=== PATIENT | male | born 2000 | race African-American/Black ===

== ENCOUNTER 2020-10-07 14:35 | Emergency (ER) | payer OTHER ==
--- OUTSIDE RECORDS SUMMARY | 2020-10-07 14:40 | XMS REPORT | Continuity of Care Document ---
:2000 Author Organization [facility] t Address [address] [place] [address] Care Team Providers Name Role Phone Steve Primary Care Physician Unavailable Faraz Robert Attending Clinician Ramakrishna Correia MD Attending Clinician Jordyn Tyler Attending Clinician VISIT, [facility] Attending Clinician Unavailable MASOOD Admitting Clinician Unavailable Payers Payer Name Policy Type Policy Effective Date Expiration Date Sour ce Number [facility] [id number] 2018 [facility] 00:00:00 [facility] [id number] O Problems Condition Condition Condition Status Onset Resolution Last Treating Co mments Source Name Details Category Date Date Treatment Clinician Date DKA DKA Disease Active [place] (diabetic (diabetic 4-09 Meth jacquelyn ketoacidos ketoacidos 00:00: st es) es) 00 Gastroesop Problem Active 2020-06-28 M emoria hageal - 00:32:10 l reflux 00:00: Byron disease Gastroesop 00 (disorder) hageal reflux disease (disorder) Active 04/25/2012 Problem 06/28/2020 Data migrated from T-Quad 22 on 01/09/15. Medical Group Polyuria Problem Active 2019-03-30 Mem oria (finding) 8-10 21:19:00 l Polyuria 00:00: Jose De Jesus kirkland (finding) 00 Active 03/22/2012 Problem 03/30/2019 Data migrated from T-Quad 22 on 01/09/15. Medical Group Diabetes Problem Resolve 2020-06-28 Me moria mellitus d 00:32:10 l (disorder) Diabetes He rmann mellitus (disorder) Resolved Problem 06/28/2020 Medical Group Morbid Problem Active 2020-06-28 Memor ia obesity 00:32:10 l (disorder) Morbid Herm zaki obesity (disorder) Active Problem 06/28/2020 Medical Group Well Problem Active 2019-03-30 Memor ia adolescent 21:19:00 l (finding) Well [place] adolescent (finding) Active Problem 03/30/2019 Medical Group Diabetes Problem Active 2020-06-28 Mem oria mellitus 00:32:10 l type 2 Diabetes Jose De Jesus n (disorder) mellitus type 2 (disorder) Active Problem 06/28/2020 Medical Group Hypertensi Problem Active 2020-06-28 M emoria ve 00:32:10 l disorder, [place] systemic Hypertensi arterial ve (disorder) disorder, systemic arterial (disorder) Active Problem 06/28/2020 Medical Group Allergies, Adverse Reactions, Alerts Allergy Allergy Status Severity Reaction(s) Onset Inactive Treating Comm ents Source Name Type Date Date Clinician No Known No Known Active Memori a Medicati Medicati l on on [place] Allergie Allergie s s Social History Social Habit Start Date Stop Date Quantity Comments Source Sex Assigned At [facility] ethodist History [facility] Meth odist Alcohol Std Drinks History [facility] Meth odist Alcohol Binge Social History 2020-03-23 2020-03-23 [facility] ermann 14:19:16 14:19:16 Tobacco use and 2019-11-20 2019-11-20 Never used [facility] ethodist exposure 00:00:00 00:00:00 Alcohol intake 2019-11-20 2019-11-20 Lifetime [facility] thodist 00:00:00 00:00:00 non-drinker (finding) History [facility] 2019-11-20 2019-11-20 1 [place] Meth odist Alcohol Frequency 00:00:00 00:00:00 Smoking Status Start Date Stop Date Source Never smoker [place] Jihanis margarita Medications Ordered Filled Start Stop Current Ordering Indication Dosage Frequency Signature Comments Components Source Medication Medication Date Date Medication? Clinician (SIG) Name Name 3 ML 2019-08 Yes See Memoria Insulin 1-13 Instructio l Glargine 15:38: ns, INJECT Her krause 100 UNT/ML 00 20 UNITS Prefilled SUB-Q ONCE Syringe DAILY AT [Lantus] BEDTIME, # 45 mL, 2 Refill(s), Pharmacy: [facility], 170.18, cm, 06/25/20 9:22:00 PERPETUAL INVENTORY CLERK, Height, 172.443, kg, 06/25/20 9:22:00 PERPETUAL INVENTORY CLERK, Weight BD 2019-08 Yes 1 ea, Memoria Ultra-Fine 1-13 MISC, l Alma 15:38: Daily, use [place] Insulin Pen 00 with Elizabeth 32G lantus, # 4mm= 100 ea, 3 inch Refill(s), Pharmacy: [facility], 170.18, cm, 06/25/20 9:22:00 PERPETUAL INVENTORY CLERK, Height, 172.443, kg, 06/25/20 9:22:00 PERPETUAL INVENTORY CLERK, Weight metFORMIN 2019-08 Yes 1,000 mg = Me moria 500 mg oral 1-13 2 tab, PO, l tablet, 15:38: Daily, # Jose De Jesus n extended 00 180 tab, 1 release Refill(s), Pharmacy: [facility], 170.18, cm, 06/25/20 9:22:00 PERPETUAL INVENTORY CLERK, Height, 172.443, kg, 06/25/20 9:22:00 PERPETUAL INVENTORY CLERK, Weight lisinopril 2019-08 Yes 10 mg = 1 Me moria 10 mg oral 1-13 tab, PO, l tablet 15:38: Daily, # [place] 00 90 tab, 1 Refill(s), Pharmacy: [facility], 170.18, cm, 06/25/20 9:22:00 PERPETUAL INVENTORY CLERK, Height, 172.443, kg, 06/25/20 9:22:00 PERPETUAL INVENTORY CLERK, Weight lisinopril Yes 5 mg = 1 Mem oria 5 mg oral 8-11 tab, PO, l tablet 14:47: Daily, # [place] 00 90 tab, 0 Refill(s), Pharmacy: [facility], 167.64, cm, 03/23/20 9:15:00 CDT, Height, 170.625, kg, 03/23/20 9:15:00 CDT, Weight 3 ML 2019- Yes See Memoria Insulin 8-11 Instructio l Glargine 14:42: ns, INJECT Her krause 100 UNT/ML 00 50 UNITS Prefilled SUB-Q ONCE Syringe DAILY AT [Lantus] BEDTIME, # 45 mL, 2 Refill(s), Pharmacy: [facility], 167.64, cm, 03/23/20 9:15:00 CDT, Height, 170.625, kg, 03/23/20 9:15:00 CDT, Weight BD Yes 1 ea, Memoria Ultra-Fine 03-23 MISC, l Alma 14:42: Daily, use [place] Insulin Pen 00 with Elizabeth 32G lantus, # 4mm= 100 ea, 3 inch Refill(s), Pharmacy: [facility], 167.64, cm, 03/23/20 9:15:00 CDT, Height, 170.625, kg, 03/23/20 9:15:00 CDT, Weight metFORMIN Yes 1,000 mg = Me moria 500 mg oral 03-23 2 tab, PO, l tablet, 14:42: Daily, # Jose De Jesus n extended 00 180 tab, 1 release Refill(s), Pharmacy: [facility], 167.64, cm, 03/23/20 9:15:00 CDT, Height, 170.625, kg, 03/23/20 9:15:00 CDT, Weight aspirin 81 2020- No 81mg QD Chew 1 [place] mg chewable 4-16 04-16 tablet (81 M ethodi tablet 00:00: 23:59 mg total) st 00 :00 daily. lisinopriL 2020- No 5mg QD Take 1 [place] (PRINIVIL) 4-16 04-16 tablet (5 Met hodi 5 mg tablet 00:00: 23:59 mg total) st 00 :00 by mouth daily. metFORMIN 2020- No 500mg Q.5D Take 500 [place] (GLUCOPHAGE 4-15 04-15 mg by Method i ) 500 mg 13:54: 00:[address] tablet 03 :00 (two) times a day with meals. glipiZIDE Yes 5mg QD Take 1 [place] (GlucotroL) 4-15 tablet (5 Met hodi 5 MG tablet 00:00: mg total) s t 00 by mouth daily. insulin 2020-0 Yes 60U QD Inject 60 [place] GLARGINE 4-15 Units Methodi (LANTUS 00:00[facility] skin daily 100 unit/mL with injection dinner. (pen) blood-gluco 2020-0 Yes Test daily [place] se meter, 4-15 before all Meth jacquelyn drum-type 00:00: meals/snac st (Accu-Chek 00 ks and Compact once Plus Care) before kit bedtime. blood sugar 2020-0 Yes Test daily [place] diagnostic, 4-15 before all Me thodi drum 00:00: meals/snac st (Accu-Chek 00 ks and Compact once Test) strip before bedtime. lancing 2019-0 Yes Test daily [place] device with 4-15 before all Me thodi lancets 00:00: meals/snac st (Accu-Chek 00 ks and Multiclix once Lancet) kit before bedtime. alcohol 2019- Yes Test daily [place] swabs pads, 4-15 before all Me thodi medicated 00:00: meals/snac st 00 ks and once before bedtime. metFORMIN 2020- No 1000mg Q.5D Take 1 Dinora ston (GLUCOPHAGE 11-25-15 tablet Metho di ) 1,000 mg 00:00: 23:59 (1,000 mg s t tablet 00 :00 total) by mouth 2 (two) times a day with meals. Vital Signs Vital Name Observation Time Observation Value Comments Source Systolic (mm Hg) 2020-06-25 15:51:00 [facility] kati [place] Diastolic (mm Hg) 2020-06-25 15:51:00 [facility] Heart Rate 2020-06-25 15:51:00 [facility] Systolic (mm Hg) 2020-06-25 15:22:00 [facility] Diastolic (mm Hg) 2020-06-25 15:22:00 [facility] Heart Rate 2020-06-25 15:22:00 [facility] Respitory Rate 2020-06-25 15:22:00 [facility] iris [place] Height 2020-06-25 15:22:00 170.18 cm [facility] Weight 2020-06-25 15:22:00 [facility] BMI Calculated 2020-06-25 15:22:00 Memori al [place] Heart Rate 2020-03-23 14:15:00 [facility] [place] Height 2020-03-23 14:15:00 167.64 cm [facility] [place] Weight 2020-03-23 14:15:00 [facility] BMI Calculated 2020-03-23 14:15:00 Memori al [place] Systolic (mm Hg) 2020-03-23 14:15:00 Miky rial [place] Diastolic (mm Hg) 2020-03-23 14:15:00 Mem orial [place] Oxygen saturation in 2019-11-26 10:59:00 97 /min Oneal [facility] Arterial blood by Pulse oximetry Systolic blood 2019-11-26 10:48:33 134 mm[Hg] Diamondto n [facility] pressure Diastolic blood 2019-11-26 10:48:33 79 mm[Hg] Letitia on [facility] pressure Heart rate 2019-11-26 10:48:33 116 /min Oneal [facility] Body temperature 2019-11-26 10:48:33 37 Marybeth [place] Respiratory rate 2019-11-26 10:48:33 16 /min [place] Body weight 2019-11-26 09:00:00 164.837 kg Oneal [facility] BMI 2019-11-26 09:00:00 56.92 kg/m2 One[facility] Body height 2019-11-20 22:00:00 170.2 cm Oneal [facility] BMI Calculated 2018-02-08 19:08:00 Memalbin al [place] Weight 2018-02-08 19:08:00 [facility] [place] Height 2018-02-08 19:08:00 173.36 cm [facility] [place] Systolic (mm Hg) 2018-02-08 19:08:00 Miky rial [place] Diastolic (mm Hg) 2018-02-08 19:08:00 Mem orial [place] Heart Rate 2018-02-08 19:08:00 [facility] Procedure Date / Time Performing Clinician Source Performed POC GLUCOSE 2019-11-26 10:46:00 Jose Correia Meth odist Purushottam POC GLUCOSE 2019-11-26 07:00:00 Jose Correia Meth odist Purushottam POC GLUCOSE 2019-11-26 06:04:00 Jose Correia Meth odist Purushottam POC GLUCOSE 2019-11-25 20:47:00 Correia, [facility] Meth odist Purushottam POC GLUCOSE 2019-11-25 16:58:00 Correia, [facility] Meth odist Purushottam POC GLUCOSE 2019-11-25 11:38:00 Correia, [facility] Meth odist Purushottam POC GLUCOSE 2019-11-25 07:10:00 Correia, [facility] Meth odist Purushottam POC GLUCOSE 2019-11-25 05:51:00 Correia, [facility] Meth odist Purushottam POC GLUCOSE 2019-11-24 20:38:00 Correia, [facility] Meth odist Purushottam POC GLUCOSE 2019-11-24 15:25:00 Correia, [facility] Meth odist Purushottam POC GLUCOSE 2019-11-24 11:18:00 Correia, [facility] Meth odist Purushottam OCCULT BLOOD, STOOL 2019-11-24 10:00:00 Shivani Urrutia POC GLUCOSE 2019-11-24 07:30:00 Correia, [facility] Meth odist Purushottam BASIC METABOLIC PANEL 2019-11-24 05:10:00 Shivani Urrutia HC COMPLETE BLD COUNT 2019-11-24 05:10:00 Shivani Urrutia W/AUTO DIFF IONIZED CALCIUM 2019-11-24 05:10:00 Shivani Urrutia MAGNESIUM LEVEL 2019-11-24 05:10:00 Shivani Urrutia ESTIMATED GFR 2019-11-24 05:10:00 Shivani Urrutia GFR CALCULATION 2019-11-24 03:54:53 Shivani Urrutia POC GLUCOSE 2019-11-23 20:31:00 Correia, [facility] Meth odist Purushottam POC GLUCOSE 2019-11-23 17:26:00 Correia, [facility] Meth odist Purushottam POC GLUCOSE 2019-11-23 12:59:00 Correia, [facility] Meth odist Purushottam POC GLUCOSE 2019-11-23 11:10:[address] [facility] Meth odist Purushottam POC GLUCOSE 2019-11-23 08:56:00 Correia, [facility] Meth odist Purushottam POC GLUCOSE 2019-11-23 06:59:00 [facility] TROPONIN 2019-11-23 05:40:00 Christine Fatima BostonStephen Oneal Met hodist BASIC METABOLIC PANEL 2019-11-23 05:40:00 Shivani Urrutia [facility] CBC WITH PLATELET AND 2019-11-23 05:40:00 Shivani Urrutia [facility] DIFFERENTIAL IONIZED CALCIUM 2019-11-23 05:40:00 Shivani Urrutia [facility] MAGNESIUM LEVEL 2019-11-23 05:40:00 Shivani Urrutia [facility] PHOSPHORUS LEVEL 2019-11-23 05:40:00 Devon, Latoya Dong on [facility] ESTIMATED GFR 2019-11-23 05:40:00 Devon, Latoyaradha [place] [facility] MANUAL DIFFERENTIAL 2019-11-23 05:40:00 Devon, Latoya [place] [facility] POC GLUCOSE 2019-11-23 04:47:[address] [facility] Meth odist Purushottam GFR CALCULATION 2019-11-23 04:02:53 Devon, Latoya [place] [facility] POC GLUCOSE 2019-11-23 03:10:[address] [facility] Meth odist Purushottam POC GLUCOSE 2019-11-23 02:20:[address] [facility] Meth odist Purushottam POC GLUCOSE 2019-11-23 01:05:[address] [facility] Meth odist Purushottam POC GLUCOSE 2019-11-23 00:13:[address] [facility] Meth odist Purushottam POC GLUCOSE 2019-11-22 23:24:[address] [facility] Meth odist Purushottam POC GLUCOSE 2019-11-22 22:21:[address] [facility] Meth odist Purushottam POC GLUCOSE 2019-11-22 21:35:[address] [facility] Meth odist Purushottam POC GLUCOSE 2019-11-22 20:52:[address] [facility] Meth odist Purushottam POC GLUCOSE 2019-11-22 16:27:[address] [facility] Meth odist Purushottam POC GLUCOSE 2019-11-22 12:25:[address] [facility] Meth odist Purushottam POC GLUCOSE 2019-11-22 09:09:[address] [facility] Meth odist Purushottam POC GLUCOSE 2019-11-22 06:54:[address] [facility] Meth odist Purushottam POC GLUCOSE 2019-11-22 06:15:[address] [facility] Meth odist Purushottam POC GLUCOSE 2019-11-22 05:05:[address] [facility] Meth odist Purushottam POC GLUCOSE 2019-11-22 04:07:[address] [facility] Meth odist Purushottam POC GLUCOSE 2019-11-22 03:02:[address] [facility] Meth odist Purushottam LIPID PANEL 2019-11-22 03:00:00 Adrienne Colvin [facility] THYROID STIMULATING 2019-11-22 03:00:00 Adrienne Colvin [facility] HORMONE CBC WITH PLATELET AND 2019-11-22 03:00:00 Adrienne Colvin [facility] DIFFERENTIAL FERRITIN LEVEL 2019-11-22 03:00:00 Adrienne Colvin [facility] FOLATE LEVEL 2019-11-22 03:00:00 Adrienne Colvin [facility] TOTAL IRON BINDING 2019-11-22 03:00:00 Adrienne Colvin [facility] CAPACITY VITAMIN B12 LEVEL 2019-11-22 03:00:00 Adrienne Colvin on [facility] TROPONIN 2019-11-22 03:00:00 Christine Fatima hodrhea COMPREHENSIVE METABOLIC 2019-11-22 03:00:00 Praveen Duron [facility] PANEL IONIZED CALCIUM 2019-11-22 03:00:00 Praveen Duron Meth odist MAGNESIUM LEVEL 2019-11-22 03:00:00 Praveen Duron Meth odist PHOSPHORUS LEVEL 2019-11-22 03:00:00 Praveen Duron Met gordon PROTHROMBIN TIME WITH INR 2019-11-22 03:00:00 Praveen Duron ESTIMATED GFR 2019-11-22 03:00:00 Praveen Duron odist MANUAL DIFFERENTIAL 2019-11-22 03:00:00 Praveen Duron POC GLUCOSE 2019-11-22 01:54:00 Jose Correia [place] Meth odist Purushottam POC GLUCOSE 2019-11-22 01:05:[address] [facility] Meth odist Purushottam GFR CALCULATION 2019-11-22 00:58:31 ColvinAdrienne Noel Oneal [facility] POC GLUCOSE 2019-11-21 23:57:00 Correia, Jameervin [place] Meth odist Purushottam ECG 12-LEAD 2019-11-21 23:06:23 Praveen Duron Meth odist POC GLUCOSE 2019-11-21 22:55:00 CorreiaAlexis hernandezmargarita [place] Meth odist Purushottam POC GLUCOSE 2019-11-21 20:59:00 [facility] Pur[facility] BASIC METABOLIC PANEL 2019-11-21 20:28:00 Praveen Duron HC COMPLETE BLD COUNT 2019-11-21 20:28:00 Praveen Duron W/AUTO DIFF IONIZED CALCIUM 2019-11-21 20:28:00 Praveen Duron Meth odist MAGNESIUM LEVEL 2019-11-21 20:28:00 Praveen Duron Meth odist PHOSPHORUS LEVEL 2019-11-21 20:28:00 Praveen Duron Met hodist LACTIC ACID LEVEL 2019-11-21 20:28:00 Praveen Duron Me thodist ESTIMATED GFR 2019-11-21 20:28:00 Praveen Duron Meth odist GFR CALCULATION 2019-11-21 20:23:11 Praveen Duron Meth odist POC GLUCOSE 2019-11-21 20:00:00 Masood Jamerachelleanderson [place] Meth odist Purushottam TROPONIN 2019-11-21 19:01:00 Christine Fatima BostonStephen Oneal Met hodist POC GLUCOSE 2019-11-21 17:27:[address] [facility] Meth odist Purushottam TROPONIN 2019-11-21 17:25:00 Kelleysanty Christine Oneal Met hodist LIPID PANEL 2019-11-21 17:25:00 Margaux Fatimalexie Oneal Met hodist IA-2 ANTIBODY 2019-11-21 17:25:[address] [facility] Meth odist Purushottam INSULIN, RANDOM 2019-11-21 17:25:00 Correia, [facility] Meth odist Purushottam C-PEPTIDE 2019-11-21 17:25:[address] [facility] Meth odist Purushottam MISCELLANEOUS REFERRAL 2019-11-21 17:25:00 Correia [facility] Letitia on [facility] TEST Purushottam ECG 12-LEAD 2019-11-21 15:19:20 Kelleysanty Christine Oneal Met hodist POC GLUCOSE 2019-11-21 13:16:[address] [facility] Meth odist Purushottam POC GLUCOSE 2019-11-21 11:59:[address] [facility] Meth odist Purushottam POC GLUCOSE 2019-11-21 11:05:[address] [facility] Meth odist Purushottam POC GLUCOSE 2019-11-21 10:34:[address] [facility] Meth odist Purushottam URINE CULTURE 2019-11-21 09:14:[address] [facility] Meth odist Purushottam POC GLUCOSE 2019-11-21 08:47:[address] [facility] Meth odist Purushottam GFR CALCULATION 2019-11-21 08:15:01 Praveen Duron Meth odist POC GLUCOSE 2019-11-21 08:14:[address] [facility] Meth odist Purushottam BASIC METABOLIC PANEL 2019-11-21 08:12:00 Praveen Duron n [facility] ESTIMATED GFR 2019-11-21 08:12:00 Praveen Duron Meth odist POC GLUCOSE 2019-11-21 07:11:00 Correia, [facility] Meth odist Purushottam POC GLUCOSE 2019-11-21 06:28:00 [facility] COVID-19 QUALITATIVE PCR 2019-11-21 06:00:00 Praveen Duron POC GLUCOSE 2019-11-21 05:03:00 Jose Correia Meth odist Purushottam POC GLUCOSE 2019-11-21 04:01:00 Jose Correia [place] Meth odist Purushottam IONIZED CALCIUM 2019-11-21 03:30:00 Praveen Duron Meth odist MAGNESIUM LEVEL 2019-11-21 03:30:00 Praveen Duron Meth odist PHOSPHORUS LEVEL 2019-11-21 03:30:00 Praveen Duorn Met gordon BASIC METABOLIC PANEL 2019-11-21 03:30:00 Praveen Duron ESTIMATED GFR 2019-11-21 03:30:00 Praveen Duron Meth odist POC GLUCOSE 2019-11-21 03:01:00 Jose Correia [place] Meth odist Purushottam GFR CALCULATION 2019-11-21 02:45:25 Praveen Duron Meth odist XR CHEST 1 VW PORTABLE 2019-11-21 02:43:08 Praveen Duron on [facility] POC GLUCOSE 2019-11-21 02:36:00 Jose Correia Oneal Meth odist Purushottam URINALYSIS SCREEN AND 2019-11-21 02:22:00 Praveen Duron MICROSCOPY, WITH REFLEX TO CULTURE POC GLUCOSE 2019-11-21 00:59:00 Jose Correia Meth odist Purushottam POC GLUCOSE 2019-11-20 23:55:00 [facility] POC GLUCOSE 2019-11-20 23:18:00 Benito Correiaakmargarita [place] Meth odist Purushottam BLOOD CULTURE, AEROBIC & 2019-11-20 22:50:00 Praveen Duron ANAEROBIC VENOUS BLOOD GAS 2019-11-20 22:50:00 Praveen Duron BLOOD CULTURE, AEROBIC & 2019-11-20 22:40:00 Praveen Duron ANAEROBIC COMPREHENSIVE METABOLIC 2019-11-20 22:40:00 Praveen Duron [facility] PANEL HC COMPLETE BLD COUNT 2019-11-20 22:40:00 Praveen Duron W/AUTO DIFF HEMOGLOBIN A1C 2019-11-20 22:40:00 Praveen Duron Meth odist IONIZED CALCIUM 2019-11-20 22:40:00 Praveen Duron Meth odist MAGNESIUM LEVEL 2019-11-20 22:40:00 Praveen Duron Meth odist LACTIC ACID LEVEL 2019-11-20 22:40:00 Praveen Duron Me thodist ESTIMATED GFR 2019-11-20 22:40:00 Praveen Duron Meth odist PHOSPHORUS LEVEL 2019-11-20 22:40:00 Praveen Duron Met hodrhea BETA HYDROXYBUTYRATE 2019-11-20 22:40:00 Praveen Duron PROTHROMBIN TIME WITH INR 2019-11-20 22:40:00 Praveen Duronton [facility] POC GLUCOSE 2019-11-20 22:36:00 Jose Correia Meth odist Purushottam GFR CALCULATION 2019-11-20 22:12:12 Praveen Duron Meth odist POC GLUCOSE 2019-11-20 21:38:00 Jose Correia Meth odist Purushottam Plan of Care Planned Activity Planned Date Details Comments Source Future Scheduled 2020-03-13 INFLUENZA VACCINE [place] [facility] Test 00:00:00 [code = INFLUENZA VACCINE] Future Scheduled 2018 Hepatitis C screening [place] [facility] 00:00:00 (procedure) [code = 314119761] Future Scheduled 2016 COVID-19 VACCINE (1 of [place] [facility] 00:00:00 2) [code = COVID-19 VACCINE (1 of 2)] Future Scheduled 2010 DIABETES: RETINAL EYE [place] [facility] 00:00:00 EXAM [code = DIABETES: RETINAL EYE EXAM] Future Scheduled 2010 DIABETIC FOOT EXAM [place] [facility] 00:00:00 [code = DIABETIC FOOT EXAM] Future Scheduled 2010 URINE MICROALBUMIN [place] [facility] 00:00:00 [code = URINE MICROALBUMIN] Encounters Start End Encounter Admission Attending Care Care Encounter Source Date/Time Date/Time Type Type Clinicians Facility Department ID 2020-06-25 2020-06-25 Outpatient Jakob, [facility] [id number] 09:20:00 23:59:59 Manjula 13 Ruth 2020-03-30 2020-03-30 Outpatient Jakob, [facility] [id number] 15:20:00 23:59:59 Manjula 12 Ruth 2020-03-23 2020-03-23 Outpatient Jakob, [facility] [id number] 09:20:00 23:59:59 Manjula 11 Ruth 2019-12-16 2019-12-16 Outpatient Jakob, [facility] [id number] 09:20:00 09:20:00 Manjula 09 Ruth 2019-11-20 2019-11-26 Inpatient MASOOD, [facility] [id number] [place] [address] 00:00:00 00:00:00 J[address] 2019-03-28 2019-03-28 Outpatient Jayson, [facility] [id number] 09:30:00 09:30:00 Jacob 08 Rasool 2018-08-23 2018-08-23 Outpatient VISIT, [facility] [id number] 08:30:00 08:30:00 NURSE [facility] 07 PEDI 2018-08-09 2018-08-09 Outpatient VISIT, [facility] [id number] 08:15:00 08:15:00 NURSE [facility] 06 PEDI 2018-02-08 2018-02-08 Outpatient Jayson, [facility] [id number] 14:30:00 23:59:[address] Results Test Description Test Time Test Comments Results Result Comments Source HEMATOLOGY 2020-06-25 16.2 [facility] 15:57:00 HEMATOLOGY 2020-06-25 5.01 [facility] nn 15:57:00 HEMATOLOGY 2020-06-25 12.2 [facility] nn 15:57:00 HEMATOLOGY 2020-06-25 38.7 [facility] nn 15:57:00 HEMATOLOGY 2020-06-25 77.2 [facility] Elena nn 15:57:00 HEMATOLOGY 2020-06-25 15:57:00 Test Item Value Reference Range Interpretation Comme nts MCH (test code = MCH) 24.4 pg 27.0-33.0 Memorial [id number] 15:57:0031.5[facility]ann[facility]MATOLOGY 2020-06-25 15:57:0013.7[facility] [id number] 15:57:52650Qmxoyzpe [id number] 15:57:0010.3[facility] [id number] 15:57:3893865Eijbiqur CjjalfdPLNDHNFYWR3643-57-74 15:57:034781Lwmjtlqu [place] [id number] 15:57:074512Xwqdejvb PqbiqylEPDCVLPFQY0282-37-53 15:57:00 389[facility]orial MxdbaevKPBTJBSUWV0906-28-18 15:57:0097[facility] HermannHEMATOLOGY 2020-06-25 15:57:0069.9[facility]orial ZpbryruUAEZFQJMWU4615-66-62 15:57:0019.6[facility] PugxdhnGXRBAYPUMV6190-98-32 15:57:007.5[facility] LirtmdzYAEOTFKEMB5020-85-32 15:57:002.4[facility] GnafvedKSMDLFJQSL0531-02-08 15:57:000.6[facility] HermannCHEM WAYTJ0317-90-60 15:56:52170Lbizhsen HermannCHEM KMNPJ0807-96-58 15:56:0013 [facility]annCHEM RHRQJ4355-53-87 15:56:000.88[facility] HermannCHEM PANEL 2020-06-25 15:56:78720Gpgsatnn HermannCHEM VUBDX1751-56-17 15:56:35727Jlpswnat HermannCHEM CTVCK7889-37-52 15:56:79551Jwlxtovy HermannCHEM VRVLZ2209-00-11 15:56:004.6[facility] HermannCHEM KEVAE7617-33-20 15:56:19130Rokuhjuf HermannCHEM DJYWN9100-31-63 15:56:0028[facility] HermannCHEM DJKKJ5670-22-57 15:56:009.6 [facility]annCHEM KWELI3511-26-15 15:56:007.0[facility] HermannCHEM PANEL 2020-06-25 15:56:004.1[facility] HermannCHEM MWLSB2564-57-54 15:56:002.9[facility] HermannCHEM JWHCL5237-24-67 15:56:001.4[facility] HermannCHEM BWIVZ4810-64-81 15:56:000.5[facility] HermannCHEM RJVUQ2950-24-53 15:56:0071[facility] HermannCHEM GWIQT0797-88-76 15:56:0013[facility] HermannCHEM ZXRKC8419-15-39 15:56:0012 [facility] YdslpapJQQRAV6433-39-19 15:56:35893Fjunyapy GqzxgtsXENOKH3437-93-17 15:56:0044[facility] PtzhtscWWIHQC4651-20-24 15:56:0093[facility] HermannLIPIDS 2020-06-25 15:56:0082[facility] XsmrevvZKUKNK7172-61-26 15:56:003.3[facility] KcufmjtDDEQXJ6718-83-85 15:56:70270Spnbnhxw HermannSPECIAL OPBXWXRAP5933-37-49 15:56:006.1[facility] HermannIA-2 cgduyzzb8654-77-03 12:42:33 Test Item Value Reference Range Interpretation Comments IA-2 antibody (test see note Islet An tigen-2 (IA-2) code = 60224-4) Autoantibody , Serum OKUP test code 34297 99 IA-2, Autoantibody <5 .4 U/mL (Ref Interva l: 0.0-7.4) INTER PRETIVE INFORMATION: Is let Antigen-2 (IA-2 ) Autoantibody, S erumA value greater t stevens or equal to 7.5 Un its/mL is considered posi tive for IA-2 autoantibo dies. This assay is intend ed for the quantitative determination o f autoantibodies to Islet Antigen-2 (IA-2 ) in human serum. Results should be interpreted wit hin the context of clin ical symptoms. =========Test p erformed by:[facility] [place], [place] [address] [facility] MethodistMiscellaneous referral [id number] 10:24:08 Test Item Value Reference Interpretation Comments Range Misc test GAD65 serum name (test code = 2566) Misc test SEE NOTE Report Status: result FINAL (test code = 1730) =====GAD65 Ab A ssay, Serum ===== 0.01 nmol/L Reference Value: <= 0.02- - - - - - - - - - - - - - - - - - - - - - - - - - - - - -La boratory Notes:This test was developed and its performancechar acteristics determined by [facility] in a mannerconsisten t with CLIA requirements. T his test has not beencleared or approved by the U.S. Food a nd DrugAdministrat ion.+ ---+: PERFORMI SITE LEGEND :+ +: : [facility] :: : [address] [place] [address] :+ + COLBY (test CARDOZA Test ID: code = GD65S Glutamic COLBY) Acid Decarboxylase (GAD65) Antibody Assay, Serum [facility] gagekna5974-93-47 10:51:24 Test Item Value Reference Range Interpretation Comments POC glucose (test code 235 mg/dL 65-99 H Opera tee Name: Shantel = 27582-8) Jarrod ID: [id number] able: RN Notified Lab Interpretation Abnormal (test code = 05461-6) [facility] MethodistBlood culture, aerobic & bporqukki0843-07-85 01:03:08 Test Item Value Reference Range Interpretation Comments Blood culture No growth Specimen isolate (test after 5 days [facility] Anpro21 code = 600-7) of Source: BloodS pecimen incubation. Site: Antecubit al, right [facility] MethodistOccult blood, ydxzj1996-47-14 12:45:39 Test Item Value Reference Range Interpretation Comments Occult blood, Negative for Specimen stool (test occult blood. InformationSpe [employer] code = Source: StoolSp ecimen 2334-1) Site: Not other vega specified [facility] metabolic vknjv9825-36-83 06:10:37 Test Item Value Reference Range Interpretation Comments Sodium (test code = 136 See_Comment [Automa jesus message] 1857-2) The system Vetiary generated this result transmit jesus reference range : 135 - 148 mEq/L. Th e reference range was not used to interpret this result as normal/abnormal . Potassium (test code = 4.1 See_Comment [Aut omated message] 8336-3) The system Vetiary generated this result transmit jesus reference range : 3.5 - 5.0 mEq/L. Th e reference range was not used to interpret this result as normal/abnormal . Chloride (test code = 98 See_Comment [Auto mated message] 175-0) The system Vetiary generated this result transmit jesus reference range : 98 - 112 mEq/L. Th e reference range was not used to interpret this result as normal/abnormal . CO2 (test code = 28 See_Comment [Automated message] 2028-04) The system Vetiary generated this result transmit jesus reference range : 24 - 31 mEq/L. The reference range was not used to interpret this result as normal/abnormal . Anion gap (test code = 10@JASVIR See_Comment [Aut omated message] 03893-8) The system Vetiary generated this result transmit jesus reference range : 7 - 15 mEq/L. The reference range was not used to interpret this result as normal/abnormal . BUN (test code = 4 mg/dL 6-20 L 3094-0) Creatinine (test code = 0.61 mg/dL 0.7-1.2 L 2160-0) Glucose (test code = 174 mg/dL 65-99 H 2345-7) Calcium (test code = 8.7 mg/dL 8.3-10.2 76926-5) Lab Interpretation Abnormal (test code = 86461-7) Jm MethodistMagnesium maimy2748-42-89 06:10:37 Test Item Value Reference Range Interpretation Comments Magnesium (test code = 39344-5) 1.8 mg/dL 1.7-2.2 Oneal MethodistEstimated [id number] 06:10:37 Test Item Value Reference Range Interpretation Comments Estimated GFR (test >=90 mL/min/1.73 m2 [facility] Units code = 5488) InterpretationG 1 >=90 Normal or highG2 60-89 Mildly yvytdxwmvG5m 45-59 Mildly to mode rately giralljsuW0r 30-44 Moderately to severely decreasedG4 15-29 Severely decre asedG5 <15 Kidn ey failureThe eGFR was calculated pj hatch the Chronic Kidney Disease Epidemiology Co llaboration (CKD-EPI) equat ion. Interpretation is based on recommendations of the National Kidney Foundation-Kidn ey Disease Outcomes Qualit y Initiative (NKF-KDOQI) pub lished in 2013. Jm MethodistIonized mrxdpku3500-69-22 05:50:16 Test Item Value Reference Range Interpretation Comments pH (test code = 2753-2) 7.45 Ionized calcium (test code = 1.04 mmol/L 1.11-1.32 L 1994-) Lab Interpretation (test code = Abnormal 37542-9) Jm MethodistCBC with platelet and dfhdjywmfdsy4018-60-08 05:29:40 Test Item Value Reference Range Interpretation Comments WBC (test code = 9.5 See_Comment WBC was cor rected 16767-4) for NRBCs [Auto mated message] The sy stem which generated this result transmit jesus reference range : 4.5 - 11.0 k/uL. Th e reference range was not used to interpret this result as normal/abnormal . RBC (test code = 3.08 m/uL 4.4-6 L 76216-4) HGB (test code = 718-7) 8.0 g/dL 14-18 L HCT (test code = 4544-3) 25.6 % 41-51 L MCV (test code = 787-2) 83.1 fL 82-100 MCH (test code = 785-6) 26.0 pg 27-34 L MCHC (test code = 786-4) 31.3 g/dL 31-37 RDW - SD (test code = 38.9 fL 37-55 51493-2) MPV (test code = 10.3 fL 6.9-11 72732-0) Platelet count (test 296 K/uL 150-400 code = 08728-7) Nucleated RBC (test code 1.30 See_Comment [A utomated message] = 44062-3) The system Vetiary generated this result transmit jesus reference range : /100 WBC. The reference range was not used to interpret this result as normal/abnormal . Neutrophils (test code = 51.2 % 39-69 86652-5) Lymphocytes (test code = 30.4 % 25-45 04236-6) Monocytes (test code = 10.9 % 0-10 H 09850-1) Eosinophils (test code = 2.4 % 0-5 92559-0) Basophils (test code = 0.4 % 0-1 55192-5) Immature granulocytes 4.7 % 0-1 H (test code = 12372-1) Lab Interpretation (test Abnormal code = 12355-9) [facility] MethodistGFR znendvgihez8515-75-08 03:54:53 Test Item Value Reference Range Interpretation Comments GFR calculation (test See Below GFR no t valid on code = 1455) patients less t stevens 18 years of age . [facility] MethodistEC 12 zuak5615-78-33 22:27:42 Test Item Value Reference Range Interpretation Comments Ventricular rate (test 115 code = 253) Atrial rate (test code 115 = 255) NV interval (test code 142 = 266) QRSD interval (test 82 code = 260) QT interval (test code 324 = 264) QTC interval (test code 448 = 265) P axis 1 (test code = 49 267) QRS axis 1 (test code = 38 268) T wave axis (test code 35 = 270) EKG impression (test Sinus code = 273) tachycardia-Nonspecifi c ST and T wave abnormality-Abnormal ECG-In automated comparison with ECG of 21-NOV-2019 15:19,-No significant change was found- Jm VermaQkxdxuuwdDrizoasj6500-26-09 07:46:21 Test Item Value Reference Range Interpretation Comments Troponin (test code = <0.006 0-0.04 [place] [address]-4) having a myocar dial infarction, troy ng with all other appro priate clinical measur es and actions includi ng ECG and other diagnosti cs as appropriate, me asure Ultra TnI at 0 hrs and at 3 hrs.Myocardia l infarction VERY LIKELYThe 0 hr TnI level is > 0.10 ng/mL --Myocardial in farction LIKELYThe 0 hr TnI level is > 0.04 ng/mL and 3 hr level is increa sed or decreased by at least 0.020 ng/mL -------Rivas cardial infarct ion VERY UNLIKELYBoth th e 0 hr and 3 hr TnI levels <= 0.04 ng/mL(within no rmal limits) OR 0 hr is > 0.04 ng/mL and 3 hr is increased OR de creased by less than 0.020 ng/mL Jm BurciagaPhosphorus dzhbi3374-71-63 06:38:08 Test Item Value Reference Range Interpretation Comments Phosphorus (test code = 2777-1) 3.4 mg/dL 2.4-4.5 [facility] MethodistManual ywumfitficun4084-53-32 06:31:11 Test Item Value Reference Range Interpretation Comments Manual differential PERFORMED (test code = 99323-9) Neutrophils (test code 68.0 % 39-69 = 94228-6) Lymphocytes (test code 25.0 % 25-45 = 93228-5) Monocytes (test code = 1.0 % 0-10 07154-8) Eosinophils (test code 3.0 % 0-5 = 78932-7) Basophils (test code = 0.0 % 0-1 16045-1) Metamyelocytes (test 2 % code = 740-1) Myelocytes (test code 1 % = 749-2) Nucleated RBC (test 3 See_Comment NRBC res ults have code = 10368-3) been factore d into the WBC count. No further calcula tion is needed. [Automated mess age] The system Vetiary generated this result transmit jesus reference range : /100 WBC. The reference range was not used to interpret this result as normal/abnormal . Plasma cells (test 1 % code = 41563-9) Platelet slide review Elzbieta adequate (test code = 19123-4) Toxic granulation Moderate A (test code = 803-7) Anisocytosis (test Moderate code = 702-1) Polychromasia (test Moderate code = 75131-2) Enlarged platelets Moderate A (test code = 75764-7) Smudge cells (test Few code = 7798-2) Lab Interpretation Abnormal (test code = 20134-9) [facility] MethodistVitamin B12 umqvn9929-48-19 12:11:49 Test Item Value Reference Range Interpretation Comments Vitamin B12 (test code 1039 pg/mL 211-946 H Signi ficant overlap = 2132-9) exists between normal and deficiency states.However, most patients with deficiencies wi ll have Serum B12 <200 pg/mL. Lab Interpretation Abnormal (test code = 52265-3) [facility] MethodistFolate skjzt5407-53-07 12:11:48 Test Item Value Reference Range Interpretation Comments Folate (test code = 2284-8) 7.7 ng/mL 4.8-24.2 [facility] MethodistFerritin aqdwx4697-37-83 11:55:22 Test Item Value Reference Range Interpretation Comments Ferritin level (test code = 1091 ng/mL 30-400 H 2276-4) Lab Interpretation (test code = Abnormal 04556-4) Jm BoboistUrine ddesaqj9957-35-95 10:44:19 Test Item Value Reference Range Interpretation Comments Urine culture Mixed marcelo Specimen isolate (test <=10-3 col/cc InformationSp ecimen code = 57911-7) Source: Urin eSpecimen Site: See UA Jm MethodistThyroid stimulating jcyaese4272-14-14 04:19:15 Test Item Value Reference Range Interpretation Comments TSH (test code = 3016-3) 4.59 See_Comment H [A utomated message] The system Vetiary generated this result transmitted ref erence range: 0.27 - 4 .20 uIU/mL. The ref erence range was not u sed to interpret this result as normal/abnor mal. Lab Interpretation (test Abnormal code = 44783-5) Jm MethodistLipid vdeyl8705-87-95 04:08:49 Test Item Value Reference Interpretation Comments Range Cholesterol (test 119 mg/dL 0-199 code = 2093-3) Triglycerides (test 87 mg/dL 0-149 code = 2571-8) HDL cholesterol 38 mg/dL 40-32188 L (test code = 2085-9) LDL cholesterol 70 mg/dL 0-99 (test code = 2089-1) Lipid panel See below Total Cholester ol (mg/dL) interpretation (test < 200 code = 04316-4) Desirable 200-239 Borderline -high >=240 Hi gh Triglyceri luis m (mg/dL) <150 No rmal 150-199 Borderline-high 200-499 High >=500 Very high HDL Choles terol (mg/dL) <40 Low (male) < 50 Low (female) L DL Cholesterol (mg /dL) <100 Optimal 1 00-129 Near or above o ptimal 130-159 Borderline-high 160-189 High >=190 Very high Risk Cat ergories that modify LDL goals.Risk Catergories LDL goal (mg/dL )CHD and CHD risk equiva lent <100 (10-year risk >20%)Multiple ( 2+) risk factors < 130 (10-year risk = <20%)0-1 risk factors <160 (<10-ye ar risk) Defining levels of lipids in metabolic syndromeTriglyc erides > =150 mg/dLHDL Choles terol Men <40 mg/dL Women <50 mg/dL Non-HDL cholest jonatan is a second target f or therapy in personswith high triglycerides ( >=200 mg/dL) Lab Interpretation Abnormal (test code = 02434-8) [facility] Tulsaprehensive metabolic iubmd0696-92-10 04:08:48 Test Item Value Reference Range Interpretation Comments Sodium (test code = 136 See_Comment [Automa jesus message] 2951-2) The system Vetiary generated this result transmit jesus reference range : 135 - 148 mEq/L. Th e reference range was not used to interpret this result as normal/abnormal . Potassium (test code = 3.5 See_Comment [Aut omated message] 0683-3) The system Vetiary generated this result transmit jesus reference range : 3.5 - 5.0 mEq/L. Th e reference range was not used to interpret this result as normal/abnormal . Chloride (test code = 102 See_Comment [Auto mated message] 0) The system Vetiary generated this result transmit jesus reference range : 98 - 112 mEq/L. Th e reference range was not used to interpret this result as normal/abnormal . CO2 (test code = 22 See_Comment L [Automated message] 2028-04) The system Vetiary generated this result transmit jesus reference range : 24 - 31 mEq/L. The reference range was not used to interpret this result as normal/abnormal . Anion gap (test code = 12@ANIO See_Comment [Aut omated message] 64945-5) The system Vetiary generated this result transmit jesus reference range : 7 - 15 mEq/L. The reference range was not used to interpret this result as normal/abnormal . BUN (test code = <4 6-20 L 3094-0) Creatinine (test code = 0.57 mg/dL 0.7-1.2 L 2160-0) Glucose (test code = 206 mg/dL 65-99 H 2345-7) Calcium (test code = 8.6 mg/dL 8.3-10.2 51105-2) Protein (test code = 6.2 g/dL 6.3-8.3 L 2885-2) Albumin (test code = 3.3 g/dL 3.5-5 L 1751-7) A/G ratio (test code = 1.1 0.7-3.8 1759-0) Alkaline phosphatase 73 U/L 40-129 (test code = 6768-6) AST (test code = 22 U/L 10-50 1920-8) ALT (test code = 20 U/L 5-50 1742-6) Total bilirubin (test 0.8 mg/dL 0.2-1.2 code = 1975-2) Lab Interpretation Abnormal (test code = 56490-4) Jm MethodistTotal iron binding sumgrguq0425-77-28 04:08:48 Test Item Value Reference Range Interpretation Comments Iron level (test code = 2498-4) 64 ug/dL 59-158 Iron binding capacity (test code = 186 ug/dL 260-460 L 2500-7) % Saturation (test code = 2502-3) 34.4 % 20-40 Lab Interpretation (test code = Abnormal 65742-1) Jm MethodistProthrombin time with [id number] 03:38:47 Test Item Value Reference Range Interpretation Comments Prothrombin time (test 14.7 See_Comment H [Aut omated message] code = 5902-2) The system [employer] generated this result transmitted ref erence range: 11.5 - 1 4.5 sec. The refere nce range was not u sed to interpret this result as normal/abnor mal. INR (test code = 1.1 The Interna tional 36982-7) Normalized Rati o (INR) is a therapeuti c monitoring tool for patients who ar e stable on oral anticoagulant t herapy. An INR of 2.0-3 .0 is suggested for d eep vein thrombosis/pulm onary embolism. Lab Interpretation Abnormal (test code = 76547-4) Jm FesamimauS-lvwpdcq8450-76-10 21:52:14 Test Item Value Reference Range Interpretation Comments C-peptide (test code = 1985-) 3.5 ng/mL 1.1-4.4 Jm MethodistInsulin, zhikpl6463-04-05 21:52:14 Test Item Value Reference Range Interpretation Comments Insulin, random (test 20.4 mU/L The re ference interval code = 16801-6) for fasting insulin is 2.6-24.9 mU/L Bovey MethodistLactic acid xtlcv8726-12-58 20:54:22 Test Item Value Reference Range Interpretation Comments Lactic acid (test code = 92974-4) 1.2 mmol/L 0.5-2.2 [facility] MethodistCOVID-19 qualitative [id number] 14:28:49 Test Item Value Reference Range Interpretation Comments Interpretation (test Negative results do code = 3372500) not preclude 2019-nCoV infection and should not be used as the sole basis for treatment or other patient management decisions. Negative results must be combined with clinical observations, patient history, and epidemiological information. COVID-19 qualitative Not-Detected Not-Detected PCR result (test code = 31550-4) COVID-19 qualitative See link below for C ase Number: PCR (test code = PDF Lab Report [id number]) Bovey MethodistHemoglobin [id number] 03:59:51 Test Item Value Reference Range Interpretation Comments Hemoglobin A1C (test 13.5 % 4-5.6 H HbA1c c utoffs for code = 24299-4) diagnosing diabetes:4.0% - 5.6% = normal5.7% - 6.4% = increased risk for diabetes (prediabetes)9> =6.5% = myxcpcld8Zwen s for glycemic contro l (ADA 2016)< 7.0% Ta rget for non adults with adolph betes. More or less stringent targe ts may be appropriate for individual judi ents. <7.5% Target for Children and adolescents wit h type 1 diabetes. Lab Interpretation (test Abnormal code = 26954-5) [facility]ovey MethodistUrinalysis screen and microscopy, with reflex to culture 2019-11-21 02:55:54 Test Item Value Reference Range Interpretation Comments Specimen site (test Clean catch code = 8536003) Color, UA (test code = Yellow 5778-6) Appearance, UA (test Clear code = 5767-9) Specific gravity, UA 1.020 1.001-1.030 (test code = 5811-5) pH, UA (test code = 6.0 5.0-9.0 5803-2) Protein, UA (test code 1+ Negative A = 92441-3) Glucose, UA (test code 3+ Negative A = 63782-5) Ketones, UA (test code 2+ Negative A = 2514-8) Bilirubin, UA (test Negative Negative code = 5770-3) Blood, UA (test code = Negative Negative 5794-3) Nitrite, UA (test code Negative Negative = 5802-4) Urobilinogen, UA (test 2.0 See_Comment A [Aut omated code = 71562-1) message] The system which generated this result transmitted reference range : <2.0 E.U./dL. T he reference range was not used to interpret this result as normal/abnormal . Leukocyte esterase, UA Negative Negative (test code = 5799-2) Epithelial cells, UA <1 See_Comment [Autom ated (test code = 5787-7) message ] The system which generated this result transmitted reference range : /HPF. The refer ence range was not u sed to interpret th is result as normal/abnormal . Round epithelial cells, <1 See_Comment [Au tomated UA (test code = message] The system 81802-1) which generated this result transmitted reference range : 0 - 5 /HPF. The reference range was not used to interpret this result as normal/abnormal . WBC, UA (test code = 2 See_Comment H [Autom ated 5821-4) message] The sy stem which generated this result transmitted reference range : 0 - 1 /HPF. The reference range was not used to interpret this result as normal/abnormal . RBC, UA (test code = None seen See_Comment [Autom ated 63234-6) message] The sy stem which generated this result transmitted reference range : 0 - 5 /HPF. The reference range was not used to interpret this result as normal/abnormal . Bacteria, UA (test code None seen None seen = 28531-3) Yeast, UA (test code = None seen 02771-3) Yeast with None seen pseudohyphae, UA (test code = 21705-1) Granular casts, UA 1 See_Comment H [Automat ed (test code = 5793-5) message ] The system which generated this result transmitted reference range : -1 - 0 /LPF. The reference range was not used to interpret this result as normal/abnormal . Lab Interpretation Abnormal (test code = 20096-1) Oneal MethodistXR Chest 1 Vw Lgddbili1978-20-57 02:45:23Hm Interface, Radiology Results 11/21/2019 2:48 AM CDTEXAMINATION: XR CHEST 1 VW PORTABLECLINICAL HISTORY: 18 years Male new ICU admissionCOMPARISON: None.IMPRESSION:Lines/Tubes: None.Lungs/Pleura: The lung volumes are diminished causing vascular crowding. No pleural effusion or pneumothorax is seen.Heart/Mediastinum: The cardiomediastinal silhouette is normal.Bones: No acute osseous abnormality. [facility]-[id number] MethodistBeta hydroxybutyrate 2019-11-20 23:24:15 Test Item Value Reference Range Interpretation Comments Beta hydroxybutyrate (test code = 4.26 mmol/L 0.02-0.27 H 6873-4) Lab Interpretation (test code = Abnormal 25506-7) Jm BurciagaVenous blood [id number] 23:07:24 Test Item Value Reference Range Interpretation Comments pH, venous (test code = 7.32 7.32-7.42 2746-6) pCO2, venous (test code 37 See_Comment L [Au tomated = 2020-) message] The sy stem which generated this result transmitted reference range : 45 - 51 mmHg. The reference range was not used to interpret this result as normal/abnormal . pO2, venous (test code 33 See_Comment [Aut omated = 2705-2) message] The sy stem which generated this result transmitted reference range : 25 - 40 mmHg. The reference range was not used to interpret this result as normal/abnormal . Base excess, venous -7 See_Comment L [Automa jesus (test code = 1927-3) message ] The system which generated this result transmitted reference range : -2 - 2 mEq/L. The reference range was not used to interpret this result as normal/abnormal . O2 saturation, venous 57 % 40-70 (test code = 2711-0) Bicarbonate, venous 18.3 mmol/L 21-28 L (test code = 19346-8) Lab Interpretation Abnormal (test code = 34432-2) Jm Burciaga
[2020-10-07 15:50] LABS: SARS-COV-2 RT PCR POSITIVE (NEGATIVE)
--- NOTE | 2020-10-07 16:32 | EDPHYS ---
Physician Documentation [facility] Name: Hubert Sharif Age: 19 yrs Sex: Male : 2000 Arrival Date: 10/07/2020 Time: 14:37 Bed 11 Private MD: ED Physician Luther Moran HPI: 10/07 20:39 This 19 yrs old Black Male presents to ER via Ambulatory with complaints of Headache, kb Abdominal Pain. 20:39 The patient complains of pain to the forehead. The patient describes the headache as kb intermittent. Onset: The symptoms/episode began/occurred 3 day(s) ago. Associated signs and symptoms: Pertinent positives: nausea. Severity of symptoms: At its worst the pain was mild, in the emergency department the pain is unchanged. Headache History: Denies prior headaches. The symptoms are alleviated by nothing. the symptoms are aggravated by nothing. The patient has not experienced similar symptoms in the past. The patient has not recently seen a physician. Pt reports intermittent headaches, nausea, and abnormal taste for 3 days. Came in to get tested for covid. No fever, neck stiffness/rigidity/AMS/confusion.. Historical: - Allergies: 14:46 No Known Allergies; tw2 - Home Meds: 14:46 lisinopril 5 mg Oral tab 1 tab once daily [Active]; Lantus 100 unit/mL Sub-Q soln daily tw2 for Type 2 Diabetes Mellitus [Active]; metformin 500 mg Oral tab 1 tab 2 times per day [Active]; - PMHx: 14:46 Diabetes - IDDM; Hypertension; tw2 - PSHx: 14:46 None; tw2 - Immunization history:: Adult Immunizations. - Social history:: Smoking status: Patient denies any tobacco usage or history of. ROS: 20:39 Constitutional: Negative for fever, chills, and weight loss, Cardiovascular: Negative kb for chest pain, palpitations, and edema, Respiratory: Negative for shortness of breath, cough, wheezing, and pleuritic chest pain, Back: Negative for injury and pain, MS/Extremity: Negative for injury and deformity, Skin: Negative for injury, rash, and discoloration. 20:39 Abdomen/GI: Positive for nausea, abnormal taste. 20:39 Neuro: Positive for headache. Exam: 20:39 Constitutional: This is a well developed, well nourished patient who is awake, alert, kb and in no acute distress. Head/Face: Normocephalic, atraumatic. Chest/axilla: Normal chest wall appearance and motion. Nontender with no deformity. No lesions are appreciated. Cardiovascular: Regular rate and rhythm with a normal S1 and S2. No gallops, murmurs, or rubs. Normal PMI, no JVD. No pulse deficits. Respiratory: Lungs have equal breath sounds bilaterally, clear to auscultation and percussion. No rales, rhonchi or wheezes noted. No increased work of breathing, no retractions or nasal flaring. Abdomen/GI: Soft, non-tender, with normal bowel sounds. No distension or tympany. No guarding or rebound. No evidence of tenderness throughout. Skin: Warm, dry with normal turgor. Normal color with no rashes, no lesions, and no evidence of cellulitis. MS/ Extremity: Pulses equal, no cyanosis. Neurovascular intact. Full, normal range of motion. 20:39 Neuro: Orientation: is normal, Mentation: is normal, Motor: is normal, Sensation: is normal, Gait: is steady. Vital Signs: 14:42 BP 152 / 117; Pulse 104; Resp 18; Temp 97.9(TE); Pulse Ox 100% on R/A; Weight 165.56 kg tw2 (R); Height 5 ft. 7 in. (170.18 cm); Pain 4/10; 17:09 BP 160 / 53; Pulse 103; Resp 19; Pulse Ox 98% on R/A; tw2 14:42 Body Mass Index 57.17 (165.56 kg, 170.18 cm) tw2 Kyrie Coma Score: 16:14 Eye Response: spontaneous(4). Verbal Response: oriented(5). Motor Response: obeys kb commands(6). Total: 15. MDM: 16:14 Data reviewed: vital signs, nurses notes. Data interpreted: Pulse oximetry: on room air kb is 100 %. Interpretation: normal. 16:23 Patient medically screened. kb 20:39 Counseling: I had a detailed discussion with the patient and/or guardian regarding: the kb historical points, exam findings, and any diagnostic results supporting the discharge/admit diagnosis, lab results, the need for outpatient follow up, a family practitioner, to return to the emergency department if symptoms worsen or persist or if there are any questions or concerns that arise at home. 10/07 15:51 Order name: COVID-19/FLU A+B; Complete Time: 15:59 EDMS Administered Medications: No medications were administered Disposition: 10/07/20 16:31 Discharged to Home. Impression: Coronavirus infection, unspecified. - Condition is Stable. - Discharge Instructions: COVID-19. - Prescriptions for Zofran 4 mg Oral Tablet - take 1 tablet by ORAL route every 6 hours As needed; 20 tablet. - Work release form, Medication Reconciliation Form, Thank You Letter, Antibiotic Education, Prescription Opioid Use form. - Follow up: Emergency Department; When: As needed; Reason: Worsening of condition. Follow up: Private Physician; When: 2 - 3 days; Reason: Recheck today's complaints, Continuance of care, Re-evaluation by your physician. Addendum: 10/11/2020 05:53 Co-signature as Attending Physician, Luther Moran MD I agree with the assessment and k dr plan of care. Signatures: Dispatcher [employer] EDSC Noris Andrews, REVIVAL CLERK-C REVIVAL CLERK-Ckb Luther Moran MD MD kdr Estefani Clemente RN RN tw2 Corrections: (The following items were deleted from the chart) 10/07 15:08 14:53 Influenza Screen (A \T\ B)+BA.LAB.BRZ ordered. EDSC EDSC 15:08 14:53 CORONAVIRUS+MR.LAB.BRZ ordered. EDSC EDSC 17:10 16:31 10/07/2020 16:31 Discharged to Home. Impression: Coronavirus infection, tw2 unspecified. Condition is Stable. Forms are Medication Reconciliation Form, Thank You Letter, Antibiotic Education, Prescription Opioid Use. Follow up: Emergency Department; When: As needed; Reason: Worsening of condition. Follow up: Private Physician; When: 2 - 3 days; Reason: Recheck today's complaints, Continuance of care, Re-evaluation by your physician. kb
--- NOTE | 2020-10-07 16:32 | ER ---
Nurse's Notes [facility] Name: Hubert Sharif Age: 19 yrs Sex: Male : 2000 Arrival Date: 10/07/2020 Time: 14:37 Bed 11 Private MD: Diagnosis: Coronavirus infection, unspecified Presentation: 10/07 14:42 Chief complaint: Patient states: started Sunday with headache i work around a lot of tw2 people, then my stomach hurts, i need to get a covid test to return to work. Coronavirus screen: headache, Client presents with at least one sign or symptom that may indicate coronavirus-19. Standard/surgical mask placed on the client. Provider contacted for isolation considerations. Ebola Screen: Patient denies travel to an Ebola-affected area in the 21 days before illness onset. Initial Sepsis Screen: Does the patient meet any 2 criteria? HR > 90 bpm. Does the patient have a suspected source of infection? No. Patient's initial sepsis screen is negative. Risk Assessment: Do you want to hurt yourself or someone else? Patient reports no desire to harm self or others. Onset of symptoms was October 07, 2020. 14:42 Method Of Arrival: Ambulatory tw2 14:42 Acuity: GRACIELA 3 tw2 Triage Assessment: 14:46 Headache History: Denies prior headaches. General: Appears in no apparent distress. tw2 obese, well groomed, Behavior is calm, cooperative, appropriate for age. Pain: Pain currently is 5 out of 10 on a pain scale. Pain began 2-3 days ago. Also complains of no other associated symptoms. Neuro: Level of Consciousness is awake, alert, confused, Oriented to person, place, time, situation. Neuro: Reports headache in right. Historical: - Allergies: 14:46 No Known Allergies; tw2 - Home Meds: 14:46 lisinopril 5 mg Oral tab 1 tab once daily [Active]; Lantus 100 unit/mL Sub-Q soln daily tw2 for Type 2 Diabetes Mellitus [Active]; metformin 500 mg Oral tab 1 tab 2 times per day [Active]; - PMHx: 14:46 Diabetes - IDDM; Hypertension; tw2 - PSHx: 14:46 None; tw2 - Immunization history:: Adult Immunizations. - Social history:: Smoking status: Patient denies any tobacco usage or history of. Screenin:10 Abuse screen: Denies threats or abuse. Nutritional screening: No deficits noted. tw2 Tuberculosis screening: No symptoms or risk factors identified. Fall Risk None identified. Assessment: 16:25 General: Appears comfortable, Behavior is calm, cooperative. Pain: Complains of pain in aa5 forehead Pain currently is 2 out of 10 on a pain scale. Quality of pain is described as aching. Neuro: Level of Consciousness is awake, alert, obeys commands, Oriented to person, place, time, situation, Reports headache. Cardiovascular: Patient's skin is warm and dry. Respiratory: Airway is patent Respiratory effort is even, unlabored, Respiratory pattern is regular, symmetrical. GI: Abdomen is obese. : No signs and/or symptoms were reported regarding the genitourinary system. EENT: No signs and/or symptoms were reported regarding the EENT system. Derm: Skin is dry, Skin is normal, Skin temperature is warm. Musculoskeletal: Range of motion: intact in all extremities. 17:09 Reassessment: Patient appears in no apparent distress at this time. No changes from tw2 previously documented assessment. Patient and/or family updated on plan of care and expected duration. Pain level reassessed. Patient is alert, oriented x 3, equal unlabored respirations, skin warm/dry/pink. Vital Signs: 14:42 BP 152 / 117; Pulse 104; Resp 18; Temp 97.9(TE); Pulse Ox 100% on R/A; Weight 165.56 kg tw2 (R); Height 5 ft. 7 in. (170.18 cm); Pain 4/10; 17:09 BP 160 / 53; Pulse 103; Resp 19; Pulse Ox 98% on R/A; tw2 14:42 Body Mass Index 57.17 (165.56 kg, 170.18 cm) tw2 Kyrie Coma Score: 16:14 Eye Response: spontaneous(4). Verbal Response: oriented(5). Motor Response: obeys kb commands(6). Total: 15. ED Course: 14:37 Patient arrived in ED. as 14:45 Triage completed. tw2 14:47 Arm band placed on. tw2 15:42 Noris Andrews F[facility]-C [facility]. kb 15:42 Luther Moran MD is Attending Physician. kb 16:19 Bed in low position. Call light in reach. Pulse ox on. NIBP on. tw2 16:25 Nicole Cortez, RN is Primary Nurse. aaSerafin 17:10 No provider procedures requiring assistance completed. Patient did not have IV access tw2 during this emergency room visit. Administered Medications: No medications were administered Outcome: 16:31 Discharge ordered by MD. thomas 17:10 Discharged to home ambulatory. tw2 17:10 Condition: stable 17:10 Discharge instructions given to patient, Instructed on discharge instructions, follow up and referral plans. medication usage, Demonstrated understanding of instructions, follow-up care, medications, Prescriptions given X 1. 17:10 Patient left the ED. tw2 Signatures: Noris Andrews, MARCI-C RUSSIAN TEACHER-Iris Anderson as Nicole Cortez, RN RN aa5 Estefani Clemente RN RN tw2
[2020-10-07 18:38] VITALS: TEMP 97.9
[2020-10-07 18:40] VITALS: BP 160/53; O2SAT 98
== END 2020-10-07 17:10 | disposition home or self-care (01) ==
LOC: ER 14:35
DX: U07.1 COVID-19 (principal); I10 Essential (primary) hypertension; E11.9 Type 2 diabetes mellitus without complications; Z79.4 Long term (current) use of insulin
CPT/HCPCS: 0240U; 99283